=== PATIENT | male | born 1980 | race Two or more races ===

== ENCOUNTER 2021-09-17 10:11 | Emergency (ER) | payer OTHER ==
[~2021-09-17] VITALS: Ht 162.6 cm; Wt 106.1 kg
[2021-09-17] MEDS ORDERED: NORFLEX100MG PO (14:12)
[2021-09-17] MEDS ORDERED: KETO10TA2 PO (14:12)
== END 2021-09-17 14:19 | disposition home or self-care (01) ==
LOC: ER 10:11
DX: M54.59 Other low back pain (principal)